=== PATIENT | female | born 1965 | race African-American/Black ===

== ENCOUNTER 2020-10-14 02:33 | Emergency (ER) | payer SELFPAY ==
[~2020-10-14] VITALS: Ht 167.6 cm; Wt 100.0 kg
[2020-10-14] MEDS ORDERED: ONDANSETRON 4MG ODT PO STA (02:57)
[2020-10-14 03:18] LABS: BASOPHILS % 1.2 % (0.0-2.0); EOSINOPHILS % 3.7 % (0.0-5.0); HEMATOCRIT. 44.5 % (36.0-48.0); LYMPHOCYTES % 43.6 % (20.0-50.0); MEAN CORPUSCULAR HEMOGLOBIN 27.7 pg (28.0-32.0); MEAN CORPUSCULAR VOLUME 82.1 fL (81.0-99.0); MEAN PLATELET VOLUME 7.7 fl (7.4-10.4); MONOCYTES % 8.3 % (2.0-8.0); NEUTROPHILS % 43.2 % (40.0-76.0); PLATELET 240 x1000/uL (130-400); RED BLOOD CELL COUNT 5.42 mill/uL (4.2-5.4); RED CELL DISTRIBUTION WIDTH 14.7 % (11.6-14.6)
[2020-10-14 03:24] LABS: CHLORIDE 108 mEq/L (98-107)
[2020-10-14 03:28] LABS: ETHANOL BLOOD < 10 mg/dL
[2020-10-14 05:17] LABS: CLARITY URINE CLEAR (CLEAR); COLOR URINE YELLOW (YELLOW); KETONES URINE NEGATIVE (NEGATIVE); LEUKOCYTE ESTERASE URINE TRACE (NEGATIVE); NITRITE URINE NEGATIVE (NEGATIVE); OCCULT BLOOD URINE NEGATIVE (NEGATIVE); PH URINE 6.5 (4.5-8.0); PROTEIN URINE NEGATIVE (NEGATIVE); SPECIFIC GRAVITY URINE 1.014 (1.005-1.030)
[2020-10-14 05:40] LABS: *AMPHETAMINES SCREEN URINE NEGATIVE (NEGATIVE); *BARBITURATES SCREEN URINE NEGATIVE (NEGATIVE); *BENZODIAZEPINES SCREEN URINE NEGATIVE (NEGATIVE)
[2020-10-14 05:41] LABS: METHADONE URINE SCREEN NEGATIVE (NEGATIVE); OPIATES URINE SCREEN NEGATIVE (NEGATIVE); PHENCYCLIDINE URINE SCREEN NEGATIVE (NEGATIVE)
[2020-10-14 05:56] LABS: *COCAINE SCREEN URINE PRESUMTIVE POSITIVE (NEGATIVE); CANNABINOID URINE SCREEN PRESUMTIVE POSITIVE (NEGATIVE)
[2020-10-14 11:30] VITALS: BP 111/56
== END 2020-10-14 11:45 | disposition home or self-care (01) ==
LOC: ER 02:33 → EDBD 02:33 → ER 11:45
DX: F14.129 Cocaine abuse with intoxication, unspecified (principal); F12.10 Cannabis abuse, uncomplicated; R41.82 Altered mental status, unspecified; F10.129 Alcohol abuse with intoxication, unspecified; Y90.0 Blood alcohol level of less than 20 mg/100 ml
CPT/HCPCS: 36415; 70450; 80053; 80305; 80307; 80320; 80329; 81003; 82962; 85025; 99285; Q0162; Z7610; G0480

== ENCOUNTER 2021-08-08 20:24 | Emergency (ER) | payer MEDICAID, OTHER ==
[~2021-08-08] VITALS: Ht 170.2 cm; Wt 80.0 kg
[2021-08-08] MEDS ORDERED: IBUPROFEN 600MG TABLET PO STA (23:13)
[2021-08-08 23:30] LABS: BASOPHILS % 0.3 % (0.0-2.0); EOSINOPHILS % 0.1 % (0.0-5.0); HEMATOCRIT. 45.5 % (36.0-48.0); HEMOGLOBIN. 15.2 g/dL (12.0-16.0); LYMPHOCYTES % 14.9 % (20.0-50.0); MEAN CORPUSCULAR HEMOGLOBIN 26.8 pg (28.0-32.0); MEAN CORPUSCULAR VOLUME 80.6 fL (81.0-99.0); MEAN PLATELET VOLUME 7.6 fl (7.4-10.4); MONOCYTES % 9.5 % (2.0-8.0); NEUTROPHILS % 75.2 % (40.0-76.0); PLATELET 256 x1000/uL (130-400); RED BLOOD CELL COUNT 5.65 mill/uL (4.2-5.4); RED CELL DISTRIBUTION WIDTH 14.5 % (11.6-14.6)
[2021-08-08 23:39] LABS: CHLORIDE 103 mEq/L (98-107)
[2021-08-08 23:51] LABS: HCG SCREEN NEGATIVE
[2021-08-09 00:07] LABS: CLARITY URINE CLOUDY (CLEAR); COLOR URINE YELLOW (YELLOW); KETONES URINE TRACE (NEGATIVE); LEUKOCYTE ESTERASE URINE 2+ (NEGATIVE); NITRITE URINE POSITIVE (NEGATIVE); OCCULT BLOOD URINE 2+ (NEGATIVE); PH URINE 5.5 (4.5-8.0); PROTEIN URINE 1+ (NEGATIVE); SPECIFIC GRAVITY URINE 1.014 (1.005-1.030)
[2021-08-09] MEDS ORDERED: IBUP-2028 MT (01:06)
[2021-08-09] MEDS ORDERED: CEPH500C2 MT (01:06)
[2021-08-09] MEDS: CEFTRIAXONE SODIUM 1 G/VIAL IM SCH ×2 (01:06→01:22)
[2021-08-09] MEDS: POTASSIUM CHLORIDE 20MEQ TABLET SR PO SCH ×2 (01:06→01:22)
[2021-08-09 01:22] VITALS: BP 110/56
== END 2021-08-09 01:22 | disposition home or self-care (01) ==
LOC: ER 20:24
DX: N30.00 Acute cystitis without hematuria (principal); E87.6 Hypokalemia; F17.290 Nicotine dependence, other tobacco product, uncomplicated; F14.10 Cocaine abuse, uncomplicated; Z20.822 Contact with and (suspected) exposure to COVID-19
CPT/HCPCS: 36415; 71045; 80053; 81003; 83690; 84703; 85025; 87077; 87086; 87186; 87426; 96372; 99284; C9803; J0696

== ENCOUNTER 2021-09-24 13:05 | Emergency (ER) | payer OTHER ==
[~2021-09-24] VITALS: Ht 172.7 cm; Wt 109.0 kg
[~2021-09-24 13:05] MED LIST: CEPH500C2 MT; IBUP-2028 MT
[2021-09-24] MEDS ORDERED: TETRACAINE 0.5% OPHTH DROPS 4ML LEFTEYE ONE (16:00)
[2021-09-24] MEDS ORDERED: FLUORESCEIN SODIUM 1MG/STRIP LEFTEYE ONE (16:00)
[2021-09-24 16:01] LABS: *AMPHETAMINES SCREEN URINE NEGATIVE (NEGATIVE); *BARBITURATES SCREEN URINE NEGATIVE (NEGATIVE); *BENZODIAZEPINES SCREEN URINE NEGATIVE (NEGATIVE); *COCAINE SCREEN URINE PRESUMTIVE POSITIVE (NEGATIVE); CANNABINOID URINE SCREEN NEGATIVE (NEGATIVE); METHADONE URINE SCREEN NEGATIVE (NEGATIVE); OPIATES URINE SCREEN NEGATIVE (NEGATIVE); PHENCYCLIDINE URINE SCREEN NEGATIVE (NEGATIVE)
[2021-09-24] MEDS ORDERED: CIPROFLOXACIN 0.3% OPHTH SOLN 2.5ML LEFTEYE ONE (17:45)
[2021-09-24 18:03] VITALS: BP 112/83
== END 2021-09-24 18:04 | disposition home or self-care (01) ==
LOC: ER 13:49
DX: S00.212A Abrasion of left eyelid and periocular area, initial encounter (principal); F14.10 Cocaine abuse, uncomplicated; W22.8XXA Striking against or struck by other objects, initial encounter; Y93.89 Activity, other specified; Y92.89 Other specified places as the place of occurrence of the external cause; Y99.8 Other external cause status
CPT/HCPCS: 36415; 70486; 80305; 80320; 99284; G0480

== ENCOUNTER 2023-05-11 09:14 | Emergency (ER) | payer MEDICAID ==
[~2023-05-11] VITALS: Ht 165.1 cm; Wt 68.0 kg
[2023-05-11 09:19] VITALS: O2SAT 100
[2023-05-11] MEDS ORDERED: KETOROLAC 60MG/2ML VIAL IM ONE (09:30)
[2023-05-11] MEDS: KETOROLAC 60MG/2ML VIAL IM NR (11:52)
[2023-05-11] MEDS ORDERED: DICL100G32 TP (12:04)
[2023-05-11 13:26] VITALS: BP 133/84; PULSE 90; RESP 16; TEMP 98.3
== END 2023-05-11 13:50 | disposition home or self-care (01) ==
LOC: ER 09:14
DX: M17.11 Unilateral primary osteoarthritis, right knee (principal); Z86.59 Personal history of other mental and behavioral disorders
CPT/HCPCS: 99283; 81025; 73562; 96372; J1885

== ENCOUNTER 2024-02-08 15:32 | Emergency (ER) | payer MEDICAID ==
[~2024-02-08] VITALS: Ht 177.8 cm; Wt 75.0 kg
[~2024-02-08 15:32] MED LIST changes: +DICL100G32 TP
[2024-02-08 15:35] VITALS: BP 133/86; PULSE 87; RESP 16; TEMP 99.1; O2SAT 97
== END 2024-02-08 17:47 | disposition left against medical advice (07) ==
LOC: ER 15:32
DX: J11.1 Influenza due to unidentified influenza virus with other respiratory manifestations (principal); Z53.21 Procedure and treatment not carried out due to patient leaving prior to being seen by health care provider

== ENCOUNTER 2024-09-22 19:57 | Emergency (ER) | payer SELFPAY ==
[~2024-09-22] VITALS: Ht 170.2 cm; Wt 69.0 kg
[2024-09-22 20:00] VITALS: TEMP 36.7; O2SAT 100
[2024-09-22 20:56] VITALS: O2SAT 97
[2024-09-22] MEDS: ONDANSETRON HCL 4MG/2ML INJ IV ONE (21:47)
[2024-09-22] MEDS: NALOXONE HCL 1MG/ML 2ML VIAL IV ONE (21:47)
[2024-09-22] MEDS: SODIUM CHLORIDE 0.9% 1,000 ML IV ONE (21:47)
[2024-09-22 21:55] LABS: BASOPHILS % 0.6 % (0.0-2.0); EOSINOPHILS % 0.7 % (0.0-5.0); HEMATOCRIT. 41.2 % (36.0-48.0); HEMOGLOBIN. 13.6 g/dL (12.0-16.0); LYMPHOCYTES % 28.2 % (20.0-50.0); MEAN PLATELET VOLUME 8.2 fl (7.4-10.4); MONOCYTES % 5.7 % (2.0-8.0); NEUTROPHILS % 64.8 % (40.0-76.0); PLATELET 253 x1000/uL (130-400); RED BLOOD CELL COUNT 4.90 mill/uL (4.2-5.4); RED CELL DISTRIBUTION WIDTH 15.0 % (11.6-14.6)
[2024-09-22 22:09] LABS: CREATININE 0.9 mg/dL (0.6-1.0)
[2024-09-22 22:10] LABS: ETHANOL BLOOD < 10 mg/dL (<10); UREA NITROGEN BLOOD 15 mg/dL (9-23)
[2024-09-22 22:11] LABS: ASPARTATE AMINOTRANSFERASE 14 IU/L (<34)
[2024-09-22 22:12] LABS: BILIRUBIN DIRECT < 0.1 mg/dL (<=3.0); BILIRUBIN TOTAL 0.2 mg/dL (0.1-1.0); PROTEIN TOTAL 7.8 g/dL (6.0-8.3)
[2024-09-22] MEDS ORDERED: IBUP-2030 MT (22:38)
[2024-09-22 23:01] VITALS: BP 147/91; PULSE 60; RESP 16
[2024-09-22] MEDS: IBUPROFEN 800MG TABLET PO ONE (23:01)
== END 2024-09-23 | disposition home or self-care (01) ==
LOC: ER 19:57 → CMPBEDREQ 09-24 07:16
DX: T50.901A Poisoning by unspecified drugs, medicaments and biological substances, accidental (unintentional), initial encounter (principal); E11.9 Type 2 diabetes mellitus without complications; I10 Essential (primary) hypertension; Y92.89 Other specified places as the place of occurrence of the external cause
CPT/HCPCS: 80076; 80048; 80320; 85025; 36415; 96361; 96374; 96375; 99284; J2312; J2405; J7030; G0480